=== PATIENT | male | born 1950 | race Hispanic/Latino ===

== ENCOUNTER → 2024-01-03 | Day surgery (SDC) | payer MEDICARE ==
[~2024-01-03] MED LIST: COREG3.125 MG PO; EPHEDRINE SULFATE INJ 50 MG/ML VIAL ONE; FENOFIBRATE145 MG PO; HYOSCYAMINE SULFATE 0.5 MG/ML INJ ONE; LIPITOR10 MG PO; METOCLOPRAMIDE HCL 10 MG/2ML VIAL ONE; PLAQUENIL200 MG PO; PROPOFOL IV EMULSION 10 MG/ML 20 ML VIAL ONE; XARELTO20 MG PO
[2024-01-03] MEDS: LACTATED RINGER'S 1,000 ML ONE (06:14)
[2024-01-03 08:55] VITALS: BP 122/78; PULSE 74; RESP 15; TEMP 97.9; O2SAT 95
== END | disposition home or self-care (01) ==
LOC: OR 05:28
PROVIDERS: ATTEND Internal Medicine Gastroenterology
DX: K20.90 Esophagitis, unspecified without bleeding (principal); K63.5 Polyp of colon; K62.1 Rectal polyp; K29.50 Unspecified chronic gastritis without bleeding; B96.81 Helicobacter pylori [H. pylori] as the cause of diseases classified elsewhere; K52.89 Other specified noninfective gastroenteritis and colitis; K21.9 Gastro-esophageal reflux disease without esophagitis; K57.30 Diverticulosis of large intestine without perforation or abscess without bleeding; K62.89 Other specified diseases of anus and rectum; K64.8 Other hemorrhoids; I10 Essential (primary) hypertension; E78.5 Hyperlipidemia, unspecified; Q24.8 Other specified congenital malformations of heart; M06.9 Rheumatoid arthritis, unspecified; Z79.02 Long term (current) use of antithrombotics/antiplatelets; Z79.899 Other long term (current) drug therapy
CPT/HCPCS: 43239; 43450; 45380; 45385; 83630; 83993; 84152; 87045; 87177; 87324; 87328; 87449; J1980; J2470; J2704; J2765; J7121; 45378

== ENCOUNTER → 2024-02-13 | Outpatient (REF) | payer MEDICARE ==
[~2024-02-13] MED LIST changes: -EPHEDRINE SULFATE INJ 50 MG/ML VIAL ONE; -HYOSCYAMINE SULFATE 0.5 MG/ML INJ ONE; -METOCLOPRAMIDE HCL 10 MG/2ML VIAL ONE; -PROPOFOL IV EMULSION 10 MG/ML 20 ML VIAL ONE
== END ==
LOC: NM 07:51
PROVIDERS: ATTEND Internal Medicine Gastroenterology
DX: R10.30 Lower abdominal pain, unspecified (principal); R19.7 Diarrhea, unspecified
CPT/HCPCS: 78227; A9537

== ENCOUNTER 2025-02-08 08:09 | Emergency (ER) | payer MEDICARE ==
[~2025-02-08] VITALS: Ht 175.3 cm; Wt 96.2 kg
[2025-02-08] MEDS: KETOROLAC TROMETHAMINE 30 MG/ML VIAL IM STA (09:35)
[2025-02-08] MEDS: LIDOCAINE 4% PATCH TP STA (09:36)
[2025-02-08] MEDS ORDERED: NAPROXEN375 MG PO (09:44)
[2025-02-08] MEDS ORDERED: LIDOCAINE1 EACH EXT (09:45)
[2025-02-08 10:25] VITALS: PULSE 88; RESP 18; TEMP 98; O2SAT 98
== END 2025-02-08 10:30 | disposition home or self-care (01) ==
LOC: ER 08:22
DX: S39.011A Strain of muscle, fascia and tendon of abdomen, initial encounter (principal); X50.1XXA Overexertion from prolonged static or awkward postures, initial encounter; Y92.89 Other specified places as the place of occurrence of the external cause; I10 Essential (primary) hypertension
CPT/HCPCS: 99283; J1885